=== PATIENT | female | born 1990 | race Caucasian/White ===

== ENCOUNTER 2022-02-05 18:11 | Outpatient (CLI) | payer BC, SELFPAY ==
[2022-02-05 18:34] VITALS: BP 133/83; PULSE 77
[2022-02-05 18:35] VITALS: BP 133/83; PULSE 77; RESP 16; TEMP 36.6; O2SAT 98
--- NOTE | 2022-02-05 19:11 | PC.OBNST ---
NST Note NST Note Start: 02/05/22 18:19 Freq: ONCE Status: Active Protocol: Document 02/05/22 19:05 CUDDYH (Rec: 02/05/22 18:53 CUDDYH [id number]) NST Note 1 Para (# of births) 0 EDC 02/09/22 Gestational Age In Weeks & Days 39 Weeks & 3 Days Patient Presented with Complaint(s) of Decreased movement Reactive Yes Appropriate for Gestational Age Yes RN Monique RN Date 02/05/22 Reactive Yes Appropriate for Gestational Age Yes RANJITH Rogers RNC Date 02/05/22 OB NST charge Yes Complete NST Note via Write Note Yes The provider's electronic signature indicates the NST is reactive/appropriate for gestational age. *Note to provider: If an addendum is required, open the patient's chart and click on the note under the Nurse/Allied Health tab.
== END 2022-02-05 19:10 | disposition home or self-care (01) ==
LOC: OB OUT 18:13 → OB 18:14
PROVIDERS: PCP Family Medicine; Visit Provider Family Medicine
DX: O36.8130 Decreased fetal movements, third trimester, not applicable or unspecified (principal); Z3A.39 39 weeks gestation of pregnancy
CPT/HCPCS: 59025; 99213

== ENCOUNTER 2022-02-16 17:13 | Inpatient (IN) | payer BC, SELFPAY ==
[2022-02-16] VITALS (8 sets, daily range): BP systolic 113–138; BP diastolic 65–95; PULSE 84–100; RESP 16–18; TEMP 37.1–37.2; O2SAT 98; BMI 35.6
--- NOTE | 2022-02-16 18:21 | PM.OBHPLI ---
OB - H&P: HPI Labor/Induction History of Present Illness Time Seen by Provider: 18:21 Date Seen: 02/16/22 Chief Complaint: The patient is a 31 year old 1 para 0 at 41+0 weeks gestation by LMP c/w 10 week US, who presents for IOL for post-dates. Chief complaint: Post dates IOL : 1 Para: 0 Narrative: Paige Aceves is a 31 year old female 1 para 0 at 41+0 weeks gestation by LMP c/w 10 week US, who presents for IOL for post-dates. Her was complicated by Covid-19 infection at 13w. She had a normal 20 week survey and low risk NIPT. EFW 87th percentile at 20 weeks; she has been measuring c/w with dates. GBS negative. History of Present Dating criteria: based on LMP care: good care Ultrasounds: normal 1st trimester US and normal mid trimester US Abnormal ultrasound findings: Low lying placenta seen at 20 weeks, resolved on 32 week US (posterior and 8.5 cm from the os). Narrative: Mild covid-19 infection at 13 weeks. Labs Blood type: A (+) positive Rubella: immune RPR/VDLR: nonreactive GBS status: negative HBsAG: negative Review of Systems Status of ROS: Reports: 10 or more systems reviewed and unremarkable except as noted in History and below Meds Home Medications and Allergies Home Medications Medication Instructions Recorded Confirmed Type No Known Home Medications 02/16/22 02/16/22 History Allergies Allergy/AdvReac Type Severity Reaction Status Date / Time No Known Drug Allergies Allergy Verified 02/05/22 18:51 OB - H&P: Exam Physical Exam: Vital signs: Pulse BP Pulse Ox 91 138/82 98 02/16/22 17:24 02/16/22 17:24 02/16/22 17:25 Narrative: General: Well-appearing adult female. Alert, oriented and appropriate. No acute distress. HEENT: EOMI, no conjunctival injection. No nasal discharge. Mucous membranes moist. Neck: Supple. Cardiovascular: Regular rate and rhythm, no rubs, murmurs or extra heart sounds. Respiratory: Clear to auscultation bilaterally, no wheezes, rales or rhonchi. Breathing comfortably on room air. Abdomen: Gravid. Soft, nontender. Extremities: Warm and well perfused. No lower extremity edema. Neurologic: Grossly normal strength and sensation. No focal deficits. Psych: Appropriate affect. Detailed Labor and Delivery Exam: Dilation (cm): 1 Effacement (%): 30 Cervix position: mid Consistency: medium Comments: Chilo Q2-5 mins. Patient reports tightening only. Fetus (Single): Station: -3 Heart Rate Baseline: 125 Monitor Accelerations: Present Monitor Decelerations: None Prison Variability: Moderate (6-25) OB - Problem Based A/P Additional Plan (1) Post-dates : Status: Acute Plan - Induction with cook catheter, pitocin per protocol at midnight - GBS negative - monitoring category I - Patient may have epidural upon request Delivery/Labor/Induction Plan Plan: induction Induction method: Intracervical balloon catheter (+ pitocin per protocol at midnight)
[2022-02-16 18:31] LABS: SARS PCR* Negative SARS-CoV-2 (Negative)
[2022-02-16] MEDS: LACTATED RINGERS 1000 ML 1,000 ML 125 ML IV (21:03)
[2022-02-16] MEDS: OXYTOCIN 30 unit/500 ML in NS 30 UNIT/500 ML BAG IVPB (21:04)
[2022-02-16 21:11] LABS: Basophils Percent Auto 0.3 % (0.0-3.0); Eosinophils Percent Auto 1.2 % (0.0-7.0); Hematocrit 37.7 % (33.0-51.0); Hemoglobin* 12.7 gm/dL (12.0-16.0); Immature Granulocytes Pct Auto 0.6 %; Lymphocytes Percent Auto 23.9 % (20-44); Mean Corpuscular HGB Conc 34 gm/dL (32-36); Mean Corpuscular Hemoglobin 32 pg (26-34); Mean Corpuscular Volume 94 fL (80-100); Monocytes Percent Auto 5.2 % (0.0-11.0); Neutrophils Percent Auto 68.8 % (42.0-72.0); Platelet Count* 210 K/uL (140-440); RDW Coefficient of Variation % 13.1 % (11.5-15.5); Red Blood Count 4.02 m/uL (4.00-5.20); White Blood Count* 11.49 K/uL (4.50-11.00)
[2022-02-16 21:13] LABS: Slide Review Reflex No
[2022-02-16] MEDS: hydrOXYzine pamoate 25 MG CAPSULE 100 MG PO (22:18)
[2022-02-16] MEDS: MORPHINE 10 MG/ML inj IM (22:18)
[2022-02-17] VITALS (87 sets, daily range): BP systolic 97–132; BP diastolic 51–89; PULSE 61–108; RESP 16–18; TEMP 36.4–37.4; O2SAT 96–100
[2022-02-17] MEDS: CALCIUM CARBONATE 500 MG CHEW PO (00:05)
[2022-02-17] MEDS: LACTATED RINGERS 1000 ML 1,000 ML 125 ML IV ×2 (02:10→07:05)
--- NOTE | 2022-02-17 04:32 | P.OBPN_ITS ---
Subjective Time Seen by Provider: 04:32 Date Seen: 02/17/22 Narrative: I was called in to evaluate the patient due to a prolonged deceleration. Patient had cook catheter placed around 1830 with IV pitocin started at 2100. She was noted to be veto frequently with recurrent variable decelerations. Pitocin was stopped and decelerations did to resolve with the usual measures. Cook catheter was removed with subsequent resolution of decels. Minimal variability was noted. Patient got up to use the bathroom with subsequent deep deceleration with olya ~60 lasting ~90 seconds. Patient reports minimal to no discomfort with contractions. Objective Vital Signs: Last Vital Signs Temp 98.8 F 02/17/22 01:08 Pulse 84 02/17/22 04:31 Resp 16 02/17/22 01:08 BP 117/60 02/17/22 04:31 Pulse Ox 97 02/17/22 03:37 Pelvic Exam Dilation (cm): 7 Effacement (%): 80 Station: -1 Contractions Contraction Frequency: Difficult to trace. About Q8 mins Assessment Station: -1 Status: Category ll Heart Rate Baseline: 130 Skilled Nursing Variability: Minimal (3-5) Monitor Accelerations: Present Tracing Comments: Prolonged deceleration with position change. Plan Plan: - Category II FHT associated with significant cervical change. Reasonable to continue expectant management with careful monitoring. - Remain off pitocin for now. - Low threshold to consider section if recurrent decels.
--- NOTE | 2022-02-17 07:41 | P.OBPN_ITS ---
Subjective Time Seen by Provider: 07:41 Date Seen: 02/17/22 Narrative: I was called in due to another prolonged deceleration at 0615. Recovered with repositioning. Patient checked and thought to be 4.5/50/-3. Objective Vital Signs: Last Vital Signs Temp 98.5 F 02/17/22 07:20 Pulse 69 02/17/22 07:19 Resp 18 02/17/22 07:20 BP 108/55 L 02/17/22 07:19 Pulse Ox 96 02/17/22 06:23 Pelvic Exam Dilation (cm): 5.5 Effacement (%): 50 Station: -3 Assessment Station: -3 Status: Category ll Heart Rate Baseline: 135 [employer] Variability: Moderate (6-25) Monitor Accelerations: Present Monitor Decelerations: Prolonged Plan Plan: - Recurrent prolonged decelerations despite minimal uterine contractions. Will ask OB to consult, consider section.
--- NOTE | 2022-02-17 08:46 | PM.OBPNL ---
Objective Vital Signs: Last Vital Signs Temp 98.5 F 02/17/22 07:20 Pulse 69 02/17/22 07:19 Resp 18 02/17/22 07:20 BP 108/55 L 02/17/22 07:19 Pulse Ox 96 02/17/22 06:23 Pelvic Exam Dilation (cm): 5.5 Effacement (%): 50 Station: -3 Assessment Station: -3 Status: Category ll Heart Rate Baseline: 135 Monitor Accelerations: Present Monitor Decelerations: Prolonged
--- NOTE | 2022-02-17 09:50 | P.OBCN_ITS ---
OB - CN: HPI Date of Consult Date Seen: 02/17/22 Patient: Analia Patient Consult date: 02/17/22 Requesting Physician: Rosibel Atkins MD Primary Care Provider: Rosibel Atkins MD Consult Narrative Narrative: The patient is a 31 year old G 1 P 0 woman at 41 1/7 weeks gestation that was admitted to the [facility] on 02/16/22 for IOL for postdates . Dr. Dunne has consulted me regarding concerns for intolerance of labor. I have reviewed the available records, interviewed and examined the patient. I have discussed my recommendations directly with Dr. Dunne. Paige arrived to the [facility] for cervical ripening last night. Her cervix was 1 cm dilated upon admission. She had placement of Cook catheter for ripening, and initiation of Pitocin at a low dose beginning at 9:00 p.m.. Over the night, there were some variable decelerations, 2 of which were prolonged. The most recent of these was a little after 6 this morning, and appears to have lasted approximately 2 minutes with a olya in the 60s. There were also periods of minimal variability throughout the night. After the last prolonged deceleration, heart rate recovered. Since 6:20 a.m., baseline has been 130 with moderate variability, no decelerations, positive acceleration. Cook catheter and Pitocin were discontinued overnight. Paige is has been otherwise uncomplicated. She is GBS negative. She has been under the care of Dr. Dunne throughout her . History History 1 Elective abortions Para 0 Spontaneous abortions Hx # Term Pregnancies Ectopic pregnancies Hx # Pregnancies Multiple births Number of Living Children 0 Labs Blood type: A (+) positive Rubella: immune RPR/VDLR: nonreactive GBS status: negative HBsAG: negative OB Labs: Lab Assessment Start: 02/16/22 17:25 Freq: ONCE Status: Complete Protocol: PC.OBGBS Activity Type Activity Date Activity User E-sign Co-sign Detail Recorded Client Recorded Date Recorded By Document 02/16/22 17:41 [facility] [id number] 02/16/22 17:41 [facility] 02/16/22 17:41 Lab Assessment GBS negative Previous [place] with Invasive GBS No Does Patient Meet Criteria No No Treatment Needed OK Maternal Blood Type A Maternal RH Factor Positive Evaluate Maternal Rubella Immune Status Immune Hepatitis B Surface Antigen Negative Maternal HIV Status Negative Maternal Syphillis (RPR) Status Negative Are Labs Available Yes PFSH [facility] Medical History (Updated 02/16/22 @ 18:37 by Rosibel Atkins MD) Anxiety Benign neoplasm of ovary Depression Surgical History (Updated 02/16/22 @ 18:32 by Rosibel Atkins MD) H/O umbilical hernia repair S/P ovarian cystectomy Social History Smoking Status: Never smoker Meds Home Medications and Allergies Home Medications Medication Instructions Recorded Confirmed Type No Known Home Medications 02/16/22 02/16/22 History Allergies Allergy/AdvReac Type Severity Reaction Status Date / Time No Known Drug Allergies Allergy Verified 02/05/22 18:51 OB - H&P: Exam Physical Exam: Vital signs: Temp Pulse Resp BP Pulse Ox 98.7 F 74 18 113/53 L 96 02/17/22 09:49 02/17/22 09:48 02/17/22 08:45 02/17/22 09:48 02/17/22 06:23 Narrative: Physical exam: Vitals as noted above. General: No acute distress, lying in bed when I enter Psych: Alert and oriented x 3, full affect HEENT: Normocephalic, atraumatic Abdomen: Soft, nontender, gravid, cephalic lie, EFW 7.5 lb by [place]'s. Sterile vaginal exam: 5 cm, 75% effaced,-2 station with cervix deviated to patient's left. head well applied to cervix. AROM for blood-tinged fluid. No meconium OB - Results Labs Labs: Short CBC 02/16/22 Range/Units 21:03 WBC 11.49 H (4.50-11.00) K/uL Hgb 12.7 (12.0-16.0) gm/dL Hct 37.7 (33.0-51.0) % Plt Count 210 (140-440) K/uL OB - CN: A/P Assessment and Plan (1) Post-dates : Status: Acute Assessment and Plan: 31-year-old woman at 41 weeks, 1 day gestation here for induction of labor for postdates . Cervix is now favorable. Still in latent labor, but cervical change has occurred overnight. status is currently reassuring, despite past decelerations. GBS negative. Plan I recommended re-initiation of Pitocin for induction of labor, along with continuation of continuous monitoring. I will defer to Dr. Dunne for labor management at this time. I will continue to be available for consult for any concerns during patient's labor course moving forward.
[2022-02-17] MEDS: LACTATED RINGERS 1000 ML 1,000 ML IV (13:37)
[2022-02-17] MEDS: ROPIVACAINE 0.2% 100 ml 100 ML 12 MG EPIDURAL ×2 (13:48→21:13)
--- NOTE | 2022-02-17 14:00 | P.ANBPRC_ITS ---
PFSH PFS Medical History (Updated 02/16/22 @ 18:37 by Rosibel Atkins MD) Anxiety Benign neoplasm of ovary Depression Surgical History (Updated 02/16/22 @ 18:32 by Rosibel Atkins MD) H/O umbilical hernia repair S/P ovarian cystectomy Social History Smoking Status: Never smoker Meds Home Medications and Allergies Home Medications Medication Instructions Recorded Confirmed Type No Known Home Medications 02/16/22 02/16/22 History Allergies Allergy/AdvReac Type Severity Reaction Status Date / Time No Known Drug Allergies Allergy Verified 02/05/22 18:51 Results Labs Labs: Laboratory Results - last 24 hr 02/16/22 02/16/22 02/16/22 17:40 21:03 21:03 WBC 11.49 H RBC 4.02 Hgb 12.7 Hct 37.7 MCV 94 MCH 32 MCHC 34 RDW Coeff of Leoncio 13.1 Plt Count 210 Neut % (Auto) 68.8 Lymph % (Auto) 23.9 [place] % (Auto) 5.2 Eos % (Auto) 1.2 Baso % (Auto) 0.3 Neut # (Auto) 7.90 H Lymph # (Auto) 2.70 [place] # (Auto) 0.60 Eos # (Auto) 0.10 Baso # (Auto) 0.00 Abs Immat Gran (auto) 0.10 Imm/Tot Granulo (auto) 0.6 SARS-CoV-2 (PCR) Negative SARS-CoV-2 Blood Type A Positive Antibody Screen NEGATIVE Vital Signs Vital Signs: Last Vital Signs Temp 97.9 F 02/17/22 12:10 Pulse 87 02/17/22 13:55 Resp 18 02/17/22 12:10 BP 114/56 L 02/17/22 13:55 Pulse Ox 100 02/17/22 13:58 Weight: 88.564 kg Height: 157.48 cm Anesthesia Procedures Epidural Insertion Patient Location: OB Start Time: 13:30 Stop Time: 14:30 Start Date: 02/17/22 Stop Date: 02/17/22 Reason for Block: procedure for pain Patient Position: sitting Performed By: Marcus Padilla Preanesthetic Checklist: IV checked, risks and benefits discussed, monitors and equipment checked and anesthesia consent Prep: patient draped Monitoring: blood pressure monitoring, continuous pulse oximetry and heart rate Approach: midline Vertebral Space: lumbar (1-5) Epidural Technique: MARCEL saline Needle Type: Tuohy needle Injection Technique: continuous catheter Needle gauge: 17 Needle Length (cm): 10 cm Needle Insertion Depth (cm): 6 Catheter Gauge: 21 Catheter Type: multi-orifice Catheter at skin depth (cm): 10 Test Dose Result: negative and lidocaine 1.5% with epinephrine 1 to 200,000
--- NOTE | 2022-02-17 17:39 | PM.OBPNL ---
Subjective Time Seen by Provider: 17:39 Date Seen: 02/17/22 Narrative: Called in to place IUPC. Patient received epidural, cervix found to be 6/80/-1. On pit since 1000, max of 11. Turned down to 8 due to hyperstim. Patient is comfortable with epidural. Objective Vital Signs: Last Vital Signs Temp 98.4 F 02/17/22 17:07 Pulse 80 02/17/22 16:57 Resp 16 02/17/22 16:04 BP 107/57 L 02/17/22 16:57 Pulse Ox 100 02/17/22 13:58 Pelvic Exam Dilation (cm): 7 Effacement (%): 80 Station: -1 Contractions Contraction Frequency: 1-3 Pitocin Rate (mU/min): 8 Assessment Status: Category l Heart Rate Baseline: 135 Physician Scribe Variability: Moderate (6-25) Monitor Accelerations: Present Monitor Decelerations: None Plan Plan: - Progressing - IUPC placed to determine adequacy of contractions - FHT category I - Anticipate vaginal delivery
[2022-02-17] MEDS: LACTATED RINGERS 1000 ML 1,000 ML 116 ML IV (22:03)
[2022-02-18] VITALS (53 sets, daily range): BP systolic 92–143; BP diastolic 54–87; PULSE 56–106; RESP 16–20; TEMP 36.6–37.5; O2SAT 97–98
[2022-02-18] MEDS: ROPIVACAINE 0.2% 100 ml 100 ML 12 MG EPIDURAL (04:37)
[2022-02-18] MEDS: LACTATED RINGERS 1000 ML 1,000 ML 116 ML IV (06:29)
--- NOTE | 2022-02-18 08:01 | P.OBPN_ITS ---
Subjective Time Seen by Provider: 08:01 Date Seen: 02/18/22 Narrative: I was called in as patient complete and pushing since 450. Making fair progress per nursing. Tried several positions including hands and knees, pushing on both sides. Patient comfortable with epidural. Objective Vital Signs: Last Vital Signs Temp 98 F 02/18/22 07:14 Pulse 65 02/18/22 07:47 Resp 16 02/18/22 06:05 BP 117/78 02/18/22 07:47 Pulse Ox 100 02/17/22 13:58 Pelvic Exam Dilation (cm): 10 Effacement (%): 100 Station: -2 Contractions Pitocin Rate (mU/min): 8 Assessment Heart Rate Baseline: 145 [employer] Variability: Moderate (6-25) Monitor Accelerations: Absent Monitor Decelerations: None Plan Plan: - Expectant management. Progress fair. Pushing 3 hours. - FHT category II - Anticipate vaginal delivery
[2022-02-18] MEDS: TRANEXAMIC ACID 100 MG/ML INJ 1000 MG IV (10:58)
[2022-02-18] MEDS: METHYLERGONOVINE MALEATE 0.2 MG/ML INJ IM (11:03)
[2022-02-18] MEDS: miSOPROStoL 800 MCG/4 TABLET PR (11:15)
[2022-02-18] MEDS: CEFAZOLIN 2 GM in 0.9 % SODIUM CHLORIDE Mini-bag 100 ML IVPB (11:18)
[2022-02-18] MEDS: LIDOCAINE 1% MDV 20 ML INJECTION (11:30)
--- NOTE | 2022-02-18 11:51 | PM.OBPRCVD ---
Procedure Delivery date: 02/18/22 Procedure Done: Global Narrative: The patient is a 31 year-old admitted on 02/16/22 at 41 Weeks, 0 Days gestation for IOL for post-dates.? Cervical exam on admission was 1 cm/30 % effaced/-3 station with membranes intact in vertex presentation.? Contractions were every 3-5 minutes, but not felt.? heart rate demonstrated baseline 140 bpm with moderate variability, + accelerations, - decelerations; a category 1 tracing. Cook catheter placed in Pitocin was initiated at 2100. Both had to be stopped overnight due to minimal variability and several prolonged decelerations. OBDr. Eber SANTOS was consulted a.m. on 02/17 to consider section for intolerance of labor. She felt that the patient could be restarted on Pitocin and monitored.? AROM occurred at 0831 with clear fluid. She requested an epidural and this was placed at 1200. ? Labor Analgesia:? epidural ? Pitocin:? yes ? Labor onset:? 0400 on 02/17 ? Complete:? 0436 on 02/18 ? Pushing:? 0450 on 02/18 ? heart tones during second stage were category I. ? At a viable female infant delivered in vertex OA presentation over intact perineum via spontaneous vaginal delivery.? was placed on maternal abdomen.? Cord was clamped and cut after a 30-60 second delay.? Nose and mouth were bulb suctioned.? weight pending.? 8 at 1 minute and 8 at 5 minutes.? Shoulder dystocia: no.? Nuchal cord: yes. ? Cord avulsion occurred in the 3rd stage. Placenta delivered manually. Inspected and appeared to be complete at with a 3 vessel cord. Patient received 2 g of Ancef after delivery. hemorrhage was noted. Patient received Pitocin and TXA immediately upon delivery. She was then given 1 dose of Methergine and 800 mcg of Cytotec rectally. Uterus was initially boggy but palpated firm after methergine. On-call OBGYN, Dr. Ball, was called to assist, but no additional intervention was needed. ? Mother and infant were stable after delivery. ? Lacerations:? Secondary degree perineal, repaired with 3-0 Vicryl suture. ? Blood loss: 880 mL. Blood loss measurement type: QBL ? Sponge and needles counts are correct. OB Vag Delivery Procedures Additional Procedures Cook Catheter Insertion: Yes Laceration Repair: Yes
[2022-02-18] MEDS: IBUPROFEN 600 MG TABLET PO ×2 (13:13→20:04)
[2022-02-19 01:00] VITALS: BP 125/83; PULSE 98; RESP 20; TEMP 36.7; O2SAT 98
[2022-02-19] MEDS: IBUPROFEN 600 MG TABLET PO ×2 (01:50→08:51)
[2022-02-19 04:50] VITALS: BP 113/76; PULSE 101; RESP 20; TEMP 36.6
--- NOTE | 2022-02-19 07:31 | PM.OBPNVD1 ---
OB - PN:Subj Subjective Time Seen by Provider: 07:31 Date Seen: 02/19/22 Narrative: Overall feeling well. Took a bath. Passing urine, small BM yeserday. Lochia moderate. Working on . Some difficulty with latch. Supplemented several feeds overnight. OB - PN: Obj Exam Physical Exam: Vital signs: Temp Pulse Resp BP Pulse Ox O2 Del Method 97.9 F 101 H 20 113/76 98 02/19/22 04:50 02/19/22 04:50 02/19/22 04:50 02/19/22 04:50 02/19/22 01:00 02/19/22 04:50 Narrative: General:? Well-appearing adult female.? Alert, oriented and appropriate.? No acute distress. HEENT:? EOMI, no conjunctival injection.? No nasal discharge.? Mucous membranes moist.? Neck:? Supple.? Cardiovascular:? Regular rate and rhythm, no rubs, murmurs or extra heart sounds.? Respiratory:? Clear to auscultation bilaterally, no wheezes, rales or rhonchi.? Breathing comfortably on room air.? Abdomen:? Soft, non-tender. Fundus 2 cm below the umbilicus. Normoactive bowel sounds. Extremities:? Warm and well perfused.? No lower extremity edema.? Neurologic: Grossly normal strength and sensation.? No focal deficits.? Psych:? Appropriate affect. OB - PN: A/P Vaginal Delivery Assessment and Plan (1) Post-dates : Status: Acute Assessment and Plan: - Normal delivery post- cares - S/p ancef for manual extraction of placenta - Anticipate discharge 02/20 (2) hemorrhage: Status: Acute Plan - Repeat hoemoglobin pending - Bleeding appropriate Plan day: 1
[2022-02-19 08:41] VITALS: BP 105/70; PULSE 90; RESP 18; TEMP 36.6; O2SAT 97
[2022-02-19] MEDS: DOCUSATE SODIUM 100 MG CAPSULE PO (08:51)
[2022-02-19] MEDS: FERROUS SULFATE 325 MG TABLET PO (08:51)
[2022-02-19 11:51] LABS: Hemoglobin* 10.1 gm/dL (12.0-16.0)
[2022-02-19] MEDS: ACETAMINOPHEN 500 MG TABLET 1000 MG PO (17:35)
[2022-02-19 17:53] VITALS: BP 122/82; PULSE 95; RESP 18; TEMP 36.7; O2SAT 97
[2022-02-19 20:39] VITALS: BP 107/64; PULSE 94; RESP 20; TEMP 36.6; O2SAT 95
[2022-02-20 03:52] VITALS: BP 113/73; PULSE 97; RESP 20; TEMP 36.9; O2SAT 98
[2022-02-20] MEDS: IBUPROFEN 600 MG TABLET PO (04:04)
--- NOTE | 2022-02-20 06:40 | P.DS_ITS ---
DS: Providers Provider Time Seen by Provider: 06:15 Date Seen: 02/20/22 Date of admission: 02/16/22 17:13 Primary care physician: Rosibel Atkins MD Admitting Clinician: Rosibel Atkins MD Attending Physician on discharge: Rosibel Atkins MD Date of Discharge: 02/20/22 DS: Diagnosis Discharge Diagnosis (1) Post-dates : Status: Acute (2) hemorrhage: Status: Acute (3) Vaginal delivery: Status: Acute Exam Const: Vital Signs, click to edit/add: Vital Signs - 24 hr 02/19/22 08:41 02/19/22 17:53 02/19/22 20:39 Temperature 98 F 98.1 F 97.9 F Pulse Rate [Pulse Oximeter] 90 95 94 Respiratory Rate 18 18 20 Blood Pressure [Ri ght Arm] 105/70 122/82 107/64 Pulse Oximetry 97 97 95 Oxygen Delivery Me thod Room Air Room Air Room Air 02/20/22 03:52 Temperature 98.5 F Pulse Rate [Pulse Oximeter] 97 Respiratory Rate 20 Blood Pressure [Ri ght Arm] 113/73 Pulse Oximetry 98 Oxygen Delivery Me thod Room Air Common normals: no apparent distress, healthy appearing and alert General appearance: cooperative and comfortable Orientation/consciousness: Yes awake : Uterus: firm (uterus firm and below umbilicus) Neuro: Sensorium/orientation: awake and alert Psych: Appearance: grossly normal OB - DS: Summary Hospital Course Hospital Course: The patient is a 31 year old G 1 P 0 at 41 weeks gestation that was admitted to the Center on 02/16/22 for postdates induction. She had a vaginal delivery complicated by recurrent decelerations with OB consulted who agreed with continuing towards vaginal delivery, prolonged pushing at 6 hours, cord avulsion requiring manual delivery of placenta, and PPH of approximately 1L treated with pitocin, TXA at delivery and cytotec and methergine. She delivered a viable female infant. She is breast feeding and supplementing with formula. the patient has done well. Patient today does not have any concerns. Lochia mild. No lightheadedness. Ambulating, voiding and tolerating orals. Peripartum Data Infant delivery method: Vaginal Laceration description: Perineal - 2nd Degree [place] Gender: Female Status at Discharge Functional status at discharge: independent ambulation Time Spent with Patient Time attestation: Total time spent providing and/or coordinating discharge services: Time spent: Less than 30 minutes Discharge Plan Discharge Disposition: Home, Self-Care Date of Admission: 02/16/22 17:13 Attending Provider on Discharge: Cathie Baldwin Primary Care Provider: Rosibel Atkins I Condition: Stable Anticipated Discharge Date/Time: 02/20/22 10:00 Discharge Medications: New acetaminophen 500 mg Tablet 1,000 mg PO Q6H PRN (Reason: pain/fever) Qty: 30 0RF ferrous sulfate 325 mg (65 mg iron) Tablet 325 mg PO DAILYWM Qty: 30 0RF docusate sodium 100 mg Capsule 100 mg PO DAILY Qty: 30 0RF ibuprofen 600 mg Tablet 600 mg PO Q6H PRNQty: 30 0RF No Action No Known Home Medications Discharge Orders: Discharge Order (Routine); Ordered 02/20/22 Ordered By: Cathie Baldwin Patient Education: OB Vaginal/Breast Feeding Activity Level: Activity as Tolerated Activity Detail: pelvic rest x 6 weeks (no tampons or intercourses) Discharge Diet: Regular Follow Up Appointments: Rosibel Atkins MD [Primary Care Provider] - Forms: MyHealth Info Instructions Discharge Comments: Followup for visit in [address] in with Dr Atkins at baby's followup appointments as well.
[2022-02-20 08:04] VITALS: BP 110/70; PULSE 94; RESP 16; TEMP 37; O2SAT 97
[2022-02-20] MEDS: FERROUS SULFATE 325 MG TABLET PO (08:19)
[2022-02-20] MEDS: DOCUSATE SODIUM 100 MG CAPSULE PO (08:19)
== END 2022-02-20 12:31 | disposition home or self-care (01) | DRG 560 ==
PROVIDERS: Admitting Provider Family Medicine; PCP Family Medicine; Visit Provider Family Medicine
DX: O48.0 Post-term pregnancy (principal); O76 Abnormality in fetal heart rate and rhythm complicating labor and delivery; O69.89X0 Labor and delivery complicated by other cord complications, not applicable or unspecified; O72.1 Other immediate postpartum hemorrhage; O70.1 Second degree perineal laceration during delivery; Z3A.41 41 weeks gestation of pregnancy; O99.344 Other mental disorders complicating childbirth; F32.A Depression, unspecified; F41.9 Anxiety disorder, unspecified; Z37.0 Single live birth
CPT/HCPCS: 01967; 36415; 59200; 76815; 85018; 85025; 86850; 86900; 86901; 87635; 99211; A9270; J0690; J2210; J2270; J2795; J7120; S0020

== ENCOUNTER 2023-12-30 19:51 | Outpatient (CLI) | payer OTHER, SELFPAY ==
[2023-12-30 20:01] VITALS: PULSE 113
[2023-12-30 20:12] VITALS: BP 130/80; PULSE 113; RESP 16; TEMP 36.5
[2023-12-30 20:13] VITALS: PULSE 119; O2SAT 96
--- NOTE | 2023-12-30 20:38 | W.PM.NSTNOTE ---
NST Note NST Note NST Note: Reactive NST. FHT: moderate variability, baseline 140 bpm, accels, no decels. Chilo every 5-6 minutes.
--- NOTE | 2023-12-30 21:01 | PC.OBNST ---
NST Note NST Note Start: 12/30/23 20:03 Freq: ONCE Status: Discharge Protocol: Document 12/30/23 20:03 RR (Rec: 12/30/23 21:00 [facility] [id number]) NST Note 2 Para (# of births) 1 EDC 01/13/24 Gestational Age In Weeks & Days 38 Weeks & 0 Days Patient Presented with Complaint(s) of Contractions/cramping Reactive Yes Appropriate for Gestational Age Yes RANJITH Sexton Date 12/30/23 Reactive Yes Appropriate for Gestational Age Yes RANJITH Edwards Date 12/30/23 OB NST charge Yes Complete NST Note via Write Note Yes The provider's electronic signature indicates the NST is reactive/appropriate for gestational age. *Note to provider: If an addendum is required, open the patient's chart and click on the note under the Nurse/Allied Health tab.
== END 2023-12-30 20:53 | disposition home or self-care (01) ==
LOC: OB OUT 19:52 → OB 19:54
PROVIDERS: PCP Family Medicine; Visit Provider Student in an Organized Health Care Education/Training Program
DX: O47.1 False labor at or after 37 completed weeks of gestation (principal); Z3A.38 38 weeks gestation of pregnancy
CPT/HCPCS: 59025; G0463

== ENCOUNTER 2023-12-31 06:08 | Inpatient (IN) | payer OTHER, SELFPAY ==
[2023-12-31] VITALS (44 sets, daily range): BP systolic 92–138; BP diastolic 54–101; PULSE 68–127; RESP 16–20; TEMP 36.5–37; O2SAT 85–100; BMI 35.4
[2023-12-31] MEDS: miSOPROStoL 25 MCG/0.25 TABLET PO (08:37)
[2023-12-31] MEDS: LACTATED RINGERS 1000 ML 1,000 ML 1200 ML IV (11:09)
[2023-12-31 11:15] LABS: Basophils Percent Auto 0.2 % (0.0-3.0); Eosinophils Percent Auto 0.6 % (0.0-7.0); Hematocrit 39.5 % (33.0-51.0); Hemoglobin* 13.2 gm/dL (12.0-16.0); Immature Granulocytes Pct Auto 0.4 %; Lymphocytes Percent Auto 26.7 % (20-44); Mean Corpuscular HGB Conc 33 gm/dL (32-36); Mean Corpuscular Hemoglobin 31 pg (26-34); Mean Corpuscular Volume 92 fL (80-100); Monocytes Percent Auto 4.7 % (0.0-11.0); Neutrophils Percent Auto 67.4 % (42.0-72.0); Platelet Count* 293 K/uL (140-440); RDW Coefficient of Variation % 12.9 % (11.5-15.5); Red Blood Count 4.29 m/uL (4.00-5.20); White Blood Count* 13.11 K/uL (4.50-11.00)
[2023-12-31] MEDS: BUPIVACAINE 0.25% PF 10 ML 10 ML ML EPIDURAL (11:23)
[2023-12-31] MEDS: ROPIVACAINE 0.2% 100 ml 100 ML 12 MG EPIDURAL (11:24)
[2023-12-31 11:31] LABS: Slide Review Reflex No
--- NOTE | 2023-12-31 11:33 | P.ANBPRC_ITS ---
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 - Benign neoplasm of unspecified ovary (ICD-10) Anxiety ?F41.9 - Anxiety disorder, unspecified (ICD-10) Depression ?F32.A - Depression, unspecified (ICD-10) Surgical History (System 06/13/22 @ 14:54 by Jazzmine Jernigan) H/O umbilical hernia repair ?Z98.890 - Other specified postprocedural states (ICD-10) ?Z87.19 - Personal history of other diseases of the digestive system (ICD-10) S/P ovarian cystectomy ?Z98.890 - Other specified postprocedural states (ICD-10) ?Z87.42 - Personal history of other diseases of the female genital tract (ICD-10) Social History (System 06/13/22 @ 14:54 by Jazzmine Jerngian) What is your current living situation?: I presently have a place to live Problems where you live: no known problems In the past 12 months, utilities in danger of being shut off: no In past 12 months, lack of transportation kept you from medical appts, meetings, work, or getting things needed for daily living: no In the past 12 mos, have been you worried that your food would run out before you had money to buy more?: never true In the past 12 mos, the food you bought just didn't last and you didn't have money to buy more?: never true Smoking Status: Never smoker How often does anyone, including family, friends and others, physically hurt you : never How often does anyone, including family, friends and others, insult or talk down to you: never How often does anyone, including family, friends and others, threaten you with harm: never How often does anyone, including family, friends and others, scream or curse at you: never Meds Home Medications and Allergies Home Medications ?Medication ?Instructions ?Recorded ?Confirmed ?Type vit no.95-ferrous 1 tab PO DAILY 12/30/23 12/31/23 History fumarate 28 mg-folic acid 800 mcg tablet () Allergies Allergy/AdvReac Type Severity Reaction Status Date / Time No Known Drug Allergies Allergy Verified 12/31/23 05:41 Results Labs Labs: Laboratory Results - last 24 hr 12/31/23 11:06 WBC 13.11 H RBC 4.29 Hgb 13.2 Hct 39.5 MCV 92 MCH 31 MCHC 33 RDW Coeff of Leoncio 12.9 Plt Count 293 Neut % (Auto) 67.4 Lymph % (Auto) 26.7 [place] % (Auto) 4.7 Eos % (Auto) 0.6 Baso % (Auto) 0.2 Neut # (Auto) 8.80 H Lymph # (Auto) 3.50 H [place] # (Auto) 0.60 Eos # (Auto) 0.10 Baso # (Auto) 0.00 Abs Immat Gran (auto) 0.10 Imm/Tot Granulo (auto) 0.4 Vital Signs Vital Signs: Last Vital Signs Temp 98.1 F 12/31/23 09:30 Pulse 109 H 12/31/23 11:26 Resp 17 12/31/23 09:30 BP 114/78 12/31/23 11:26 Pulse Ox 100 12/31/23 11:19 Weight: 87.997 kg Height: 157.48 cm Anesthesia Procedures Epidural Insertion Patient Location: OB Start Time: 11:00 Stop Time: 11:45 Start Date: 12/31/23 Stop Date: 12/31/23 Reason for Block: procedure for pain Patient Position: sitting Performed By: Alexander Alcaraz Preanesthetic Checklist: IV checked, risks and benefits discussed, surgical consent, monitors and equipment checked, pre-op evaluation, timeout performed and anesthesia consent Prep: chlorhexidine gluconate Monitoring: blood pressure monitoring, continuous pulse oximetry and heart rate Approach: midline Vertebral Space: lumbar (1-5) Epidural Technique: MARCEL saline Needle Type: Tuohy needle Injection Technique: continuous catheter Needle gauge: 17 Needle Length (cm): 10 cm Needle Insertion Depth (cm): 6 Catheter Gauge: 19 Catheter Type: multi-orifice Catheter at skin depth (cm): 12 Test Dose Result: negative and lidocaine 1.5% with epinephrine 1 to 200,000
[2023-12-31] MEDS: OXYTOCIN 30 unit/500 ML in NS 30 UNIT/500 ML BAG 300 UNIT IVPB (14:04)
[2023-12-31] MEDS: LIDOCAINE 1 % PF 30 ML INJECTION (14:13)
--- NOTE | 2023-12-31 14:43 | W.PM.OBVAGDE ---
OB Procedure Vag Delivery Mother Details Mother Details: The patient is a 33 year-old, 2, Para 1, admitted on 12/31/23 at 38+1 Days gestation. : 2 Para: 1 Weeks Gestation: 38.1 Admission Date: 12/31/23 Additional Details Amniotic Membrane Status: SROM Amniotic Membrane Rupture Date: 12/31/23 Amniotic Membrane Rupture Time: 04:30 Amniotic Membrane Fluid Description: Clear Analgesia/Anesthesia Type: Epidural Waterbirth: No Pitcoin: No Intrapartal Events: Labor Augmentation (oral cytotec x 1 dose) Labor Onset: 09:00 Complete: 12:11 Pushin:16 Heart: heart tones during second stage were category 2. There were recurrent deep variable decelerations with pushing. Corrected with position changes. Delivery Details Delivery Date: 12/31/23 Delivery Time: 14:02 Route of delivery: Gender: Female Viability: Alive; Heart Rate Present Position at Delivery: OA Delivery Details: Delivered over intact perineum via spontaneous vaginal delivery. was placed on maternal abdomen.? Cord was clamped and cut immediately as appeared pale and hypotonic. Transferred to the warmer. Required 10 minutes of CPAP. Then brought to the maternal chest in stable condition. 1 Minute Interval Total Score: 4 5 Minute Interval Total Score: 8 Additional Details Shoulder Dystocia: No Placenta Delivery Time: 14:09 Placental Delivery Description: Spontaneous Delivery repair: Vicryl Procedure Done: Global Blood Loss: 150 Laceration: Perineal - 1st Degree Episiotomy Description: None Blood Loss Measurement Type: QBL Bakri Used: No Sponge/Need Count Correct: Yes Cord Vessel Description: 3 Vessels and Around Body Event Summary Status: Mother and infant were stable after delivery. Disposition: floor
--- NOTE | 2023-12-31 15:03 | PM.OBHPLI ---
OB - H&P: HPI Labor/Induction History of Present Illness Time Seen by Provider: 12:00 Date Seen: 12/31/23 Chief Complaint: The patient is a 33 year old 2 para 1 at 38+1 weeks gestation by LMP, who presents with SROM. Chief complaint: maternity Narrative: Paige Aceves is a 33 year old 2 para 1 at 38+1 weeks gestation by LMP c/w 9 wk US, who presents with SROM. complicated by suspected macrosomia with EFW 4047g, >98th percentile at 37 wk US. Patient endorses onset of contractions on 12/30/23, intensifying throughout the day. Presented to triage at about 1900 on 12/29. Found to be in early labor, 1.5 cm and was discharged home. Returned after SROM occurred at home at 0430 for clear fluid. Contractions were regular, but mild. Patient was given a dose of oral cytotec at 0807 for labor augmentation. Contractions became more intense. Patient requested epidural for pain management. Found to be complete at 1211. Pushed for just under 2 hours. Viable female infant delivered at 1402. Brought to the warmer for resuscitation; required 10 minutes of CPAP, then brought to maternal chest in stable condition. First degree perineal laceration was reparied in the usual fashion. Mom and are now resting comfortably. History of Present Dating criteria: based on LMP care: good care Ultrasounds: normal 1st trimester US and normal mid trimester US Abnormal ultrasound findings: Suspected macrosomia with EFW >98th percentile on 37 week US. Medical complications: none Labs Blood type: A (+) positive Rubella: immune RPR/VDLR: nonreactive GBS status: negative HBsAG: negative Review of Systems Status of ROS: Reports: 10 or more systems reviewed and unremarkable except as noted in History and below Meds Home Medications and Allergies Home Medications ?Medication ?Instructions ?Recorded ?Confirmed ?Type vit no.95-ferrous 1 tab PO DAILY 12/30/23 12/31/23 History fumarate 28 mg-folic acid 800 mcg tablet () Allergies Allergy/AdvReac Type Severity Reaction Status Date / Time No Known Drug Allergies Allergy Verified 12/31/23 05:41 OB - H&P: Exam Physical Exam: Vital signs: Temp Pulse Resp BP Pulse Ox 97.8 F 83 16 108/74 85 L 12/31/23 11:32 12/31/23 14:57 12/31/23 11:32 12/31/23 14:57 12/31/23 12:15 Narrative: General appearance: Well-appearing adult female. Alert, oriented and appropriate. Lying back in hospital bed. Epidural in place. HEENT: EOMI, no conjunctival injection or discharge. MMM. Neck: Supple. CV: RRR, no rubs, murmurs or extra heart sounds. Pulm: CTAB, no wheezes, rales or rhonchi. Abdomen: Gravid. MSK: Moving all extremities. Ext: Warm and well-perfused. 1+ edema bilaterally Skin: No rashes appreciated over exposed skin. Neuro: Grossly normal strength and sensation. No focal deficits. Psych: Normal affect. OB - Results Labs Labs: Short CBC 12/31/23 Range/Units 11:06 WBC 13.11 H (4.50-11.00) K/uL Hgb 13.2 (12.0-16.0) gm/dL Hct 39.5 (33.0-51.0) % Plt Count 293 (140-440) K/uL OB - Problem Based A/P Additional Plan (1) Term : Status: Acute Plan - Normal post- cares - Patient plants to bottle feed - Anticipate discharge after 1-2 midnights
[2023-12-31] MEDS: IBUPROFEN 600 MG TABLET PO (18:07)
[2023-12-31] MEDS: ACETAMINOPHEN 500 MG TABLET 1000 MG PO (20:56)
[2024-01-01 00:21] VITALS: BP 114/65; PULSE 74; RESP 16; TEMP 36.6; O2SAT 95
[2024-01-01] MEDS: IBUPROFEN 600 MG TABLET PO ×3 (03:59→21:01)
[2024-01-01 04:04] VITALS: BP 106/66; PULSE 78; RESP 20; O2SAT 96
[2024-01-01 06:02] LABS: Hemoglobin* 11.4 gm/dL (12.0-16.0)
[2024-01-01 09:00] VITALS: BP 116/77; PULSE 75; RESP 20; TEMP 37.1; O2SAT 96
--- NOTE | 2024-01-01 09:01 | PM.ANPOST ---
Post Anesthesia Note Post Anesthesia Note Patient seen: Inpatient Respiratory Status: adequate Cardiovascular Status: adequate Mental Status: baseline Pain: adequate Temp: baseline Anesthetic awareness: N/A Complications: none Follow care: none
[2024-01-01] MEDS: ACETAMINOPHEN 500 MG TABLET 1000 MG PO ×2 (09:08→15:16)
--- NOTE | 2024-01-01 09:57 | P.OBPN_ITS ---
OB - PN:Subj Subjective Time Seen by Provider: 09:00 Date Seen: 01/01/24 Interval history: pt seen in routine rounds. Formula feeding. Reports 'tailbone pain' since delivery. Points to coccyx. Lochia reported as mild/scant. Ambulating. Voiding. Tolerating orals OB - PN: Obj Exam Physical Exam: Vital signs: Temp Pulse Resp BP Pulse Ox O2 Del Method 98.7 F 75 20 116/77 96 Room Air 01/01/24 09:00 01/01/24 09:00 01/01/24 09:00 01/01/24 09:00 01/01/24 09:00 01/01/24 09:00 Constitutional: Constitutional: no acute distress and cooperative Routine Abdominal Exam: Fundus: Present firm (below umbilicus) Routine Back/Spine/Pelvis Exam: Pelvis: Present coccyx tenderness (local coccyx ttp. back/sacrum otherwise nttp) Routine Psychiatric Exam: Psychiatric: Present normal affect OB - PN: Obj Data Labs Labs: Laboratory Results - last 24 hr 12/31/23 01/01/24 11:06 05:59 WBC 13.11 H RBC 4.29 Hgb 13.2 11.4 L Hct 39.5 MCV 92 MCH 31 MCHC 33 RDW Coeff of Leoncio 12.9 Plt Count 293 Neut % (Auto) 67.4 Lymph % (Auto) 26.7 [place] % (Auto) 4.7 Eos % (Auto) 0.6 Baso % (Auto) 0.2 Neut # (Auto) 8.80 H Lymph # (Auto) 3.50 H [place] # (Auto) 0.60 Eos # (Auto) 0.10 Baso # (Auto) 0.00 Abs Immat Gran (auto) 0.10 Imm/Tot Granulo (auto) 0.4 OB - PN: A/P Delivery Assessment and Plan (1) Term : Status: Acute (2) Coccyx pain: Status: Acute Assessment and Plan: discussed coccyx pain from delivery. Reviewed expected course. Ibuprofen as needed. Can use ice or warm compress as needed, whichever feels better Plan Plan: routine care Comments: Continue routine care. Discussed if doing well, could d/c later today after 24 hours or can stay until tomorrow
[2024-01-01] MEDS: DOCUSATE SODIUM 100 MG CAPSULE PO (10:49)
--- NOTE | 2024-01-01 19:18 | PC.NURSE ---
Nursing Care Hours: [id number] Pt this shift calm and cooperative, attentive to infants needs. No c/o pain. VSS.
[2024-01-01 21:08] VITALS: BP 113/74; PULSE 80; RESP 12; TEMP 36.4
[2024-01-01 23:56] LABS: Rapid Plasma Reagin (RPR) Non Reactive (Non Reactive)
[2024-01-02 01:58] VITALS: BP 97/59; PULSE 76; RESP 12; TEMP 36.7
--- NOTE | 2024-01-02 09:01 | PM.OBDSVD1 ---
DS: Providers Provider Time Seen by Provider: 09:01 Date Seen: 01/02/24 Date of admission: 12/31/23 06:08 Primary care physician: Rosibel Atkins MD Admitting Clinician: Shantal Bhatti MD Attending Physician on discharge: Cathie Balwdin DO Date of Discharge: 01/02/24 DS: Diagnosis Discharge Diagnosis (1) Vaginal delivery: Status: Acute Exam Const: Vital Signs, click to edit/add: Vital Signs - 24 hr 01/01/24 21:08 01/02/24 01:58 Temperature 97.6 F 98.0 F Pulse Rate [Pulse Oximeter] 80 76 Respiratory Rate 12 12 Blood Pressure [Ri ght Arm] 113/74 97/59 L Oxygen Delivery Me thod Room Air Documenting provider has reviewed patient's vital signs: yes Common normals: no apparent distress and healthy appearing : Uterus: U/U and firm Lochia: scant OB - DS: Summary Hospital Course Hospital Course: The patient is a 33 year old G 2 P 1 at 38 1/7 weeks gestation that was admitted to the Center on 12/31/23 for SROM. She had an uncomplicated vaginal delivery. She delivered a viable female infant. She is bottle feeding. the patient has done well overall. she did note some coccyx pain yesterday which she reports is less today. she is ambulating, voiding, tolerating orals well. Peripartum Data delivery method: Vaginal Laceration description: Perineal - 1st Degree Gender: Female Status at Discharge Functional status at discharge: independent ambulation Time Spent with Patient Time attestation: Total time spent providing and/or coordinating discharge services: Discharge Plan Discharge Disposition: Home, Self-Care Date of Admission: 12/31/23 06:08 Primary Care Provider: Rosibel Atkins I Condition: Stable Anticipated Discharge Date/Time: 01/02/24 14:00 Discharge Medications: Continued PNV cmb#95-ferrous fumarate-FA [] 28 mg iron- 800 mcg tablet 1 tab PO DAILY Discharge Orders: Discharge Order (Routine); Ordered 01/02/24 Ordered By: Cathie Baldwin Patient Education: OB Vaginal/Bottle Feeding Activity Detail: pelvic rest 6 weeks Discharge Diet: Regular Follow Up Appointments: Rosibel Atkins MD [Primary Care Provider] - ( visit at 6weeks with Dr Atkins) Forms: [employer] Info Instructions
[2024-01-02 09:20] VITALS: BP 121/79; PULSE 110; RESP 16; TEMP 36.7; O2SAT 95
[2024-01-02] MEDS: IBUPROFEN 600 MG TABLET PO (09:29)
[2024-01-02] MEDS: DOCUSATE SODIUM 100 MG CAPSULE PO (09:29)
[2024-01-02 12:08] VITALS: PULSE 83; O2SAT 97
== END 2024-01-02 13:10 | disposition home or self-care (01) | DRG 807 ==
LOC: OB OUT 06:09 → OB 06:13
PROVIDERS: Admitting Provider Student in an Organized Health Care Education/Training Program; PCP Family Medicine; Visit Provider Student in an Organized Health Care Education/Training Program
DX: O71.6 Obstetric damage to pelvic joints and ligaments (principal); Z37.0 Single live birth; M53.3 Sacrococcygeal disorders, not elsewhere classified; O70.0 First degree perineal laceration during delivery; Z3A.38 38 weeks gestation of pregnancy
CPT/HCPCS: 01967; 36415; 59200; 85018; 85025; 86592; G0463; A9270; J0665; J2003; J2371; J2795; J7120

== ENCOUNTER 2024-06-11 10:57 | Outpatient (CLI) | payer OTHER, SELFPAY | END 2024-06-11 10:58 | disposition home or self-care (01) | PROVIDERS: PCP Family Medicine; Visit Provider Physician Assistant | DX: R10.32 Left lower quadrant pain (principal); R82.90 Unspecified abnormal findings in urine | CPT/HCPCS: 87086 ==